=== PATIENT | female | born 1960 | race Caucasian/White ===

== ENCOUNTER 2018-09-17 06:41 | Day surgery (SDC) | payer OTHER ==
[~2018-09-17] VITALS: Ht 157.5 cm; Wt 60.8 kg
[2018-09-17] MEDS ORDERED: NS 1,000 ML IV ONE (07:30)
[2018-09-17] MEDS ORDERED: PROPOFOL 200 MG/20 ML VIAL As Ordered ONE ×3 (07:34→07:51)
[2018-09-17] MEDS ORDERED: LIDOCAINE 2% INJ 100 MG/5 ML SDV (FOR ANES.) As Ordered ONE (07:35)
--- NOTE | 2018-09-17 07:52 | ROOR ---
Patient Name: Susana Emmanuel Procedure Date: 09/17/2018 7:25 AM Date of : 1960 Age: 58 Room: [facility] Gender: Female Note Status: Finalized Procedure: Colonoscopy Indications: High risk colon cancer surveillance: Personal history of colonic polyps, Family history of colon cancer in a first-degree relative Providers: Carlos SHIELDS MD Referring MD: Eduardo Lucero DO Requesting Provider: Medicines: Monitored Anesthesia Care Complications: No immediate complications. Procedure: Pre-Anesthesia Assessment: - The heart rate, respiratory rate, oxygen saturations, blood pressure, adequacy of pulmonary ventilation, and response to care were monitored throughout the procedure. The Colonoscope was introduced through the anus and advanced to the terminal ileum, with identification of the appendiceal orifice and IC valve. The colonoscopy was performed without difficulty. The patient tolerated the procedure well. The quality of the bowel preparation was good. Findings: The perianal and digital rectal examinations were normal. A 4 mm polyp was found in the sigmoid colon. The polyp was sessile. The polyp was removed with a cold snare. Resection and retrieval were complete. The exam was otherwise normal throughout the examined colon. Impression: - One 4 mm polyp in the sigmoid colon, removed with a cold snare. Resected and retrieved. - Otherwise normal to terminal ileum. Recommendation: - Repeat colonoscopy in 5 years for surveillance. Carlos Shields MD Carlos SHIELDS MD 09/17/2018 7:52:19 AM Electronically signed by Carlos SHIELDS MD Number of Addenda: 0 Note Initiated On: 09/17/2018 7:25 AM Estimated Blood Loss: Estimated blood loss: none.
[2018-09-17 08:25] VITALS: BP 151/93
== END 2018-09-17 08:44 | disposition home or self-care (01) ==
LOC: M OPP 06:41
PROVIDERS: ATTEND Internal Medicine Gastroenterology
DX: Z12.11 Encounter for screening for malignant neoplasm of colon (principal); Z86.010 Personal history of colon polyps; Z80.0 Family history of malignant neoplasm of digestive organs; D12.5 Benign neoplasm of sigmoid colon; M19.90 Unspecified osteoarthritis, unspecified site; F41.9 Anxiety disorder, unspecified; Z78.0 Asymptomatic menopausal state

== ENCOUNTER → 2021-01-23 | Outpatient (CLI) | payer OTHER ==
--- NOTE | 2021-01-23 11:59 | REP ---
INDICATION: DIZZINESS COMPARISON: None. TECHNIQUE: Claros scale and color Doppler evaluation using linear high frequency transducer Findings: FINDINGS: Two-dimensional claros scale and color images demonstrate normal arterial lumen with laminar flow and no appreciable narrowing. Color Doppler interrogation demonstrates normal arterial wave patterns and velocities with no significant spectral broadening. Normal flow direction is appreciated in the bilateral vertebral arteries. ICA peak systolic velocity: Right 80.7 cm/s; Left 78.4 cm/s ICA diastolic velocity: Right 30.1 cm/s; Left 31.0 cm/s ECA peak systolic velocity: Right 61.1 cm/s; Left 68.3 cm/s CCA peak systolic velocity: Right 89.5 cm/s; Left 80.3 cm/s ICA/CCA ratio: Right 0.90 cm/s; Left 0.98 cm/s IMPRESSION: No hemodynamically significant areas of narrowing or stenosis appreciated. Based on set standards narrowing falls within the less than 50% range. <Electronically signed by Selwyn Herrera > 01/23/21 [id number]
== END ==
LOC: M RAD 11:18
PROVIDERS: ATTEND Student in an Organized Health Care Education/Training Program
DX: R42 Dizziness and giddiness (principal)

== ENCOUNTER → 2021-11-13 | Outpatient (CLI) | payer OTHER | LOC: M WHC 09:01 | PROVIDERS: ATTEND Nurse Practitioner Family | DX: Z12.31 Encounter for screening mammogram for malignant neoplasm of breast (principal) ==

== ENCOUNTER → 2021-11-26 | Outpatient (CLI) | payer OTHER | LOC: M WHC 12:57 | PROVIDERS: ATTEND Nurse Practitioner Family | DX: D48.61 Neoplasm of uncertain behavior of right breast (principal) ==

== ENCOUNTER → 2022-11-20 | Outpatient (CLI) | payer OTHER | LOC: M WHC 08:25 | PROVIDERS: ATTEND Nurse Practitioner Family | DX: Z12.31 Encounter for screening mammogram for malignant neoplasm of breast (principal) ==

== ENCOUNTER → 2024-03-15 | Outpatient (CLI) | payer OTHER | LOC: M WHC 10:58 | PROVIDERS: ATTEND Family Medicine | DX: Z12.31 Encounter for screening mammogram for malignant neoplasm of breast (principal) ==